=== PATIENT | female | born 1935 | race Caucasian/White ===

== ENCOUNTER 2019-11-28 08:49 | Outpatient (REF) | payer MEDICARE, SELFPAY | END 2019-11-28 08:50 | disposition home or self-care (01) | LOC: HO.MDS 08:49 | PROVIDERS: PCP Internal Medicine; Visit Provider Hospitalist | DX: D80.1 Nonfamilial hypogammaglobulinemia (principal) | CPT/HCPCS: 96365; 96366 ==

== ENCOUNTER 2019-12-26 08:51 | Outpatient (REF) | payer MEDICARE, SELFPAY | END 2019-12-26 08:52 | disposition home or self-care (01) | LOC: HO.MDS 08:51 | PROVIDERS: PCP Internal Medicine; Visit Provider Hospitalist | DX: D80.1 Nonfamilial hypogammaglobulinemia (principal) | CPT/HCPCS: 96365; 96366; J1572 ==

== ENCOUNTER 2020-01-23 08:59 | Outpatient (REF) | payer MEDICARE, SELFPAY | END 2020-01-23 09:00 | disposition home or self-care (01) | LOC: HO.MDS 08:59 | PROVIDERS: PCP Internal Medicine; Visit Provider Hospitalist | DX: D80.1 Nonfamilial hypogammaglobulinemia (principal) | CPT/HCPCS: 96365; 96366; J1572 ==

== ENCOUNTER 2020-02-23 08:53 | Outpatient (REF) | payer MEDICARE, SELFPAY | END 2020-02-23 08:54 | disposition home or self-care (01) | LOC: HO.MDS 08:53 | PROVIDERS: PCP Internal Medicine; Visit Provider Hospitalist | DX: D80.1 Nonfamilial hypogammaglobulinemia (principal) | CPT/HCPCS: 96365; 96366; J1572 ==

== ENCOUNTER → 2020-03-22 09:21 | Outpatient (BNVA) | payer MEDICARE, SELFPAY | PROVIDERS: Visit Provider Hospitalist | DX: D80.1 Nonfamilial hypogammaglobulinemia (principal); J41.8 Mixed simple and mucopurulent chronic bronchitis; J96.11 Chronic respiratory failure with hypoxia | CPT/HCPCS: 99212 ==

== ENCOUNTER 2020-03-24 | Outpatient (REF) | payer MEDICARE, SELFPAY | END 2020-03-24 00:01 | disposition home or self-care (01) | LOC: HO.VC | PROVIDERS: Visit Provider Internal Medicine | DX: Z23 Encounter for immunization (principal) | CPT/HCPCS: 0011A ==

== ENCOUNTER 2020-03-26 08:12 | Outpatient (REF) | payer MEDICARE, SELFPAY ==
--- NOTE | 2020-03-26 08:49 | ECG_ITS ---
Test Reason : HYPOGAMMA GLOBULINEM Blood Pressure : / mmHG Vent. Rate : 062 BPM Atrial Rate : 062 BPM P-R Int : 236 ms QRS Dur : 086 ms QT Int : 392 ms P-R-T Axes : 081 077 066 degrees QTc Int : 397 ms Sinus rhythm with 1st degree A-V block Cannot exclude old Septal infarct , age undetermined Abnormal ECG No previous ECGs available Referred By: Luke Green Electronically Signed By:MARIO RESTREPO
[2020-03-26 09:10] LABS: MANUAL DIFF FLAG SCAN; Mean Corpuscular Volume 94.3 fL (80-98); PLT CLUMP 1; Red Cell Distribution Width 14.1 % (11.0-16.0); SCAN SMEAR FLAG 1
[2020-03-26 09:12] LABS: Basophils Absolute Auto 0.1 X10*3/uL (0.0-0.2); Eosinophils Absolute Auto 0.1 X10*3/uL (0.0-0.4); Eosinophils Percent Auto 1.9 % (0-4); Hematocrit 36.4 % (37-47); Hemoglobin 12.2 g/dl (12.0-16.0); Imm Gran Abs Auto 0.03 X10*3/uL (0.00-0.03); Imm Gran Pct Auto 0.4 % (0.0-0.4); Lymphocytes Absolute Auto 1.1 X10*3/uL (1.2-4.9); Lymphocytes Percent Auto 15.3 % (20-40); Mean Corpuscular HGB Conc 33.5 g/dl (31.0-35.0); Mean Corpuscular Hemoglobin 31.6 pg (27.0-33.0); Mean Platelet Volume 10.3 fL (9.4-12.3); Monocytes Absolute Auto 0.6 X10*3/uL (0.1-1.2); Monocytes Percent Auto 8.7 % (2-11); Neutrophils Absolute Auto 5.3 X10*3/uL (2.0-8.3); Neutrophils Percent Auto 72.7 % (45-73); Platelet Count 124 X10*3/uL (160-400); Red Blood Count 3.86 X10*6/uL (4.20-5.50); White Blood Count 7.3 X10*3/uL (4.8-10.8)
[2020-03-26 09:23] LABS: Anion Gap 10 (12-20); Blood Urea Nitrogen 11 mg/dL (9-16); Calcium 8.7 mg/dL (8.4-10.2); Carbon Dioxide 31 mmol/L (22-29); Chloride 100 mmol/L (96-108); Estimated Glomerular Filt Rate > 60; Glucose Random 85 mg/dL (60-115); Potassium 3.5 mmol/L (3.3-5.1); Sodium 137 mmol/L (135-145)
[2020-03-26 10:23] LABS: Erythrocyte Sedimentation Rate 7 MM/HR (0-20)
[2020-03-29 22:57] LABS: Immunoglobulin G Subclass 1 561 mg/dL (382-929); Immunoglobulin G Subclass 2 298 mg/dL (241-700); Immunoglobulin G Subclass 3 47 mg/dL (22-178); Immunoglobulin G Subclass 4 15.6 mg/dL (4-86); Immunoglobulin G Total 1007 mg/dL (600-1540)
== END 2020-03-26 08:13 | disposition home or self-care (01) ==
LOC: HO.MDS 08:12
PROVIDERS: PCP Internal Medicine; Visit Provider Hospitalist
DX: D80.1 Nonfamilial hypogammaglobulinemia (principal)
CPT/HCPCS: 36415; 80048; 82784; 85025; 85652; 93005; 96365; 96366; J1572

== ENCOUNTER 2020-04-20 | Outpatient (REF) | payer MEDICARE, SELFPAY | END 2020-04-20 00:01 | disposition home or self-care (01) | LOC: HO.VC | PROVIDERS: Visit Provider Internal Medicine | DX: Z23 Encounter for immunization (principal) | CPT/HCPCS: 0012A ==

== ENCOUNTER 2020-04-23 08:46 | Outpatient (REF) | payer MEDICARE, SELFPAY | END 2020-04-23 08:47 | disposition home or self-care (01) | LOC: HO.MDS 08:46 | PROVIDERS: PCP Internal Medicine; Visit Provider Hospitalist | DX: D80.1 Nonfamilial hypogammaglobulinemia (principal) | CPT/HCPCS: 96365; 96366; J1572 ==

== ENCOUNTER 2020-05-21 08:55 | Outpatient (REF) | payer MEDICARE, SELFPAY | END 2020-05-21 08:56 | disposition home or self-care (01) | LOC: HO.MDS 08:55 | PROVIDERS: PCP Internal Medicine; Visit Provider Hospitalist | DX: D80.1 Nonfamilial hypogammaglobulinemia (principal) | CPT/HCPCS: 96365; J1572 ==

== ENCOUNTER 2020-06-18 08:54 | Outpatient (REF) | payer MEDICARE, SELFPAY | END 2020-06-18 08:55 | disposition home or self-care (01) | LOC: HO.MDS 08:54 | PROVIDERS: PCP Internal Medicine; Visit Provider Hospitalist | DX: D80.1 Nonfamilial hypogammaglobulinemia (principal) | CPT/HCPCS: 96365; 96366; J1572 ==

== ENCOUNTER 2020-07-16 08:53 | Outpatient (REF) | payer MEDICARE, SELFPAY | END 2020-07-16 08:54 | disposition home or self-care (01) | LOC: HO.MDS 08:53 | PROVIDERS: PCP Internal Medicine; Visit Provider Hospitalist | DX: D80.1 Nonfamilial hypogammaglobulinemia (principal) | CPT/HCPCS: 96365; 96366; J1569 ==

== ENCOUNTER → 2020-07-27 08:54 | Outpatient (BNVA) | payer MEDICARE, SELFPAY | PROVIDERS: PCP Internal Medicine; Visit Provider Hospitalist | DX: D80.1 Nonfamilial hypogammaglobulinemia (principal); J96.11 Chronic respiratory failure with hypoxia; J41.8 Mixed simple and mucopurulent chronic bronchitis | CPT/HCPCS: 99212 ==

== ENCOUNTER 2020-08-05 10:39 | Outpatient (REF) | payer MEDICARE, SELFPAY ==
[2020-08-05 11:18] LABS: ABG Refer to POC result
[2020-08-05 11:20] LABS: ABG HCO3 28 mmol/L (22-26); ABG pCO2 37 mmHg (32-45); ABG pO2 88 mmHg (83-108)
[2020-08-05 11:21] LABS: ABG pH 7.48 (7.35-7.45)
== END 2020-08-05 10:40 | disposition home or self-care (01) ==
LOC: HO.LAB 10:39
PROVIDERS: PCP Internal Medicine; Visit Provider Hospitalist
DX: Z13.89 Encounter for screening for other disorder (principal)

== ENCOUNTER 2020-08-13 08:48 | Outpatient (REF) | payer MEDICARE, SELFPAY | END 2020-08-13 08:49 | disposition home or self-care (01) | LOC: HO.MDS 08:48 | PROVIDERS: PCP Internal Medicine; Visit Provider Hospitalist | DX: D80.1 Nonfamilial hypogammaglobulinemia (principal) | CPT/HCPCS: 96365; 96366; J1569 ==

== ENCOUNTER 2020-09-10 09:57 | Outpatient (REF) | payer MEDICARE, SELFPAY | END 2020-09-10 09:58 | disposition home or self-care (01) | LOC: HO.MDS 09:57 | PROVIDERS: PCP Internal Medicine; Visit Provider Hospitalist | DX: D80.1 Nonfamilial hypogammaglobulinemia (principal) | CPT/HCPCS: 96365; 96366; J1569 ==

== ENCOUNTER 2020-10-08 08:48 | Outpatient (REF) | payer MEDICARE, SELFPAY | END 2020-10-08 08:49 | disposition home or self-care (01) | LOC: HO.MDS 08:48 | PROVIDERS: PCP Internal Medicine; Visit Provider Hospitalist | DX: D80.1 Nonfamilial hypogammaglobulinemia (principal) | CPT/HCPCS: 96365; 96366; J1572 ==

== ENCOUNTER → 2020-11-03 08:52 | Outpatient (BNVA) | payer MEDICARE, SELFPAY | PROVIDERS: PCP Internal Medicine; Visit Provider Hospitalist | DX: J96.11 Chronic respiratory failure with hypoxia (principal); J41.8 Mixed simple and mucopurulent chronic bronchitis; D80.1 Nonfamilial hypogammaglobulinemia | CPT/HCPCS: 99212 ==

== ENCOUNTER 2020-11-05 08:51 | Outpatient (REF) | payer MEDICARE, SELFPAY ==
--- NOTE | ~2020-11-05 | XR_ITS ---
EXAMINATION: XR CHEST CLINICAL INFORMATION: Chronic respiratory failure. COMPARISON: Previous chest x-rays, most recent April 2019 TECHNIQUE: 2 views of the chest were obtained. FINDINGS: The cardiac silhouette does not appear enlarged. The thoracic aorta is tortuous and calcified. Hilar and mediastinal contours are otherwise unremarkable. The lungs appear well inflated. There are increased markings at the left lung base questionable for bronchial wall thickening or small infiltrate. There is no pleural effusion or pneumothorax. There are degenerative changes of the spine. XR/XR chest 2V IMPRESSION: Well-inflated lungs suggestive of COPD. Question bronchial wall thickening or small infiltrate at the left lung base.
[2020-11-05 09:51] LABS: Basophils Absolute Auto 0.1 X10*3/uL (0.0-0.2); Basophils Percent Auto 1.1 % (0-2); Eosinophils Absolute Auto 0.1 X10*3/uL (0.0-0.4); Imm Gran Abs Auto 0.02 X10*3/uL (0.00-0.03); Imm Gran Pct Auto 0.4 % (0.0-0.4); MANUAL DIFF FLAG SCAN; PLT CLUMP 1; Red Cell Distribution Width 14.2 % (11.0-16.0); SCAN SMEAR FLAG 1
[2020-11-05 09:53] LABS: Eosinophils Percent Auto 2.6 % (0-4); Hemoglobin 12.5 g/dl (12.0-16.0); Lymphocytes Absolute Auto 0.5 X10*3/uL (1.2-4.9); Lymphocytes Percent Auto 9.9 % (20-40); Mean Corpuscular HGB Conc 33.8 g/dl (31.0-35.0); Mean Corpuscular Hemoglobin 31.7 pg (27.0-33.0); Mean Corpuscular Volume 93.9 fL (80-98); Mean Platelet Volume 9.6 fL (9.4-12.3); Monocytes Absolute Auto 0.6 X10*3/uL (0.1-1.2); Monocytes Percent Auto 11.4 % (2-11); Neutrophils Absolute Auto 4.1 X10*3/uL (2.0-8.3); Neutrophils Percent Auto 74.6 % (45-73); Platelet Count 126 X10*3/uL (160-400); Red Blood Count 3.94 X10*6/uL (4.20-5.50); White Blood Count 5.5 X10*3/uL (4.8-10.8)
[2020-11-05 11:03] LABS: Erythrocyte Sedimentation Rate 17 MM/HR (0-20)
[2020-11-10 20:02] LABS: Immunoglobulin G Subclass 1 586 mg/dL (382-929); Immunoglobulin G Subclass 2 324 mg/dL (241-700); Immunoglobulin G Subclass 3 47 mg/dL (22-178); Immunoglobulin G Subclass 4 20.8 mg/dL (4-86); Immunoglobulin G Total 1096 mg/dL (600-1540)
== END 2020-11-05 08:52 | disposition home or self-care (01) ==
LOC: HO.MDS 08:51
PROVIDERS: PCP Internal Medicine; Visit Provider Hospitalist
DX: D80.1 Nonfamilial hypogammaglobulinemia (principal); J44.9 Chronic obstructive pulmonary disease, unspecified; J96.10 Chronic respiratory failure, unspecified whether with hypoxia or hypercapnia
CPT/HCPCS: 36415; 71046; 82784; 85025; 85652; 96365; 96366; J1569

== ENCOUNTER 2020-12-17 08:57 | Outpatient (REF) | payer MEDICARE, SELFPAY | END 2020-12-17 08:58 | disposition home or self-care (01) | LOC: HO.MDS 08:57 | PROVIDERS: PCP Internal Medicine; Visit Provider Hospitalist | DX: D80.1 Nonfamilial hypogammaglobulinemia (principal) | CPT/HCPCS: 96365; 96366; J1569 ==

== ENCOUNTER 2021-01-28 08:52 | Outpatient (REF) | payer MEDICARE, SELFPAY | END 2021-01-28 08:53 | disposition home or self-care (01) | LOC: HO.MDS 08:52 | PROVIDERS: Visit Provider Hospitalist | DX: D80.1 Nonfamilial hypogammaglobulinemia (principal) | CPT/HCPCS: 96365; 96366; J1569 ==

== ENCOUNTER 2021-03-11 09:22 | Outpatient (REF) | payer MEDICARE, SELFPAY | END 2021-03-11 09:23 | disposition home or self-care (01) | LOC: HO.MDS 09:22 | PROVIDERS: Visit Provider Hospitalist | DX: D80.1 Nonfamilial hypogammaglobulinemia (principal) | CPT/HCPCS: 96365; 96366; J1569 ==

== ENCOUNTER → 2021-04-08 09:10 | Outpatient (BNVA) | payer MEDICARE, SELFPAY | PROVIDERS: PCP Internal Medicine; Visit Provider Hospitalist | DX: J96.11 Chronic respiratory failure with hypoxia (principal); J41.8 Mixed simple and mucopurulent chronic bronchitis; D80.1 Nonfamilial hypogammaglobulinemia | CPT/HCPCS: 99212 ==

== ENCOUNTER 2021-04-22 08:48 | Outpatient (REF) | payer MEDICARE, SELFPAY | END 2021-04-22 08:49 | disposition home or self-care (01) | LOC: HO.MDS 08:48 | PROVIDERS: Visit Provider Hospitalist | DX: D80.1 Nonfamilial hypogammaglobulinemia (principal) | CPT/HCPCS: 96365; 96366; J1569 ==

== ENCOUNTER 2021-06-10 09:20 | Outpatient (REF) | payer MEDICARE, SELFPAY | END 2021-06-10 09:21 | disposition home or self-care (01) | LOC: HO.MDS 09:20 | PROVIDERS: Visit Provider Hospitalist | DX: D80.1 Nonfamilial hypogammaglobulinemia (principal) | CPT/HCPCS: 96365; 96366; J1569 ==

== ENCOUNTER → 2021-07-05 10:03 | Outpatient (BNVA) | payer MEDICARE, SELFPAY | PROVIDERS: PCP Internal Medicine; Visit Provider Hospitalist | DX: J96.11 Chronic respiratory failure with hypoxia (principal); J41.8 Mixed simple and mucopurulent chronic bronchitis; I26.93 Single subsegmental thrombotic pulmonary embolism without acute cor pulmonale; D80.1 Nonfamilial hypogammaglobulinemia | CPT/HCPCS: 99212 ==

== ENCOUNTER 2021-07-22 09:25 | Outpatient (REF) | payer MEDICARE, SELFPAY | END 2021-07-22 09:26 | disposition home or self-care (01) | LOC: HO.MDS 09:25 | PROVIDERS: Visit Provider Hospitalist | DX: D80.1 Nonfamilial hypogammaglobulinemia (principal) | CPT/HCPCS: 96365; 96366; J1569 ==

== ENCOUNTER → 2021-08-11 09:38 | Outpatient (REF) | payer MEDICARE, SELFPAY ==
--- NOTE | ~2021-08-11 | XR_ITS ---
EXAMINATION: XR CHEST CLINICAL INFORMATION: PE without acute cor pulmonale. COMPARISON: None. TECHNIQUE: 2 views of the chest were obtained. FINDINGS: The lungs are hyperinflated with patchy opacities seen in left lung base, likely atelectasis or scarring. The rest of the lungs are clear. The heart size and pulmonary vascularity is normal. There is mild dextroscoliosis and mild spondylosis. XR/XR chest 2V IMPRESSION: Hyperinflated lungs with the atelectatic changes of the left lung base.
--- NOTE | ~2021-08-11 | NM_ITS ---
EXAMINATION: ME LUNG IMAGE PERFUSION CLINICAL INFORMATION: Single segmental PE seen on 07/10/2021. COMPARISON: None TECHNIQUE: Following intravenous administration of 4 mCi of technetium-99m MAA, imaging of both lungs were obtained in multiple projections. Ventilation study was not performed. FINDINGS: On perfusion scan, there are small subsegmental defects seen in the lateral basal segments of both lower lobe. This could be secondary to pleural thickening or loculated effusion. Otherwise, there is normal perfusion seen to the rest of the segments. Chest x-ray obtained today reveals mild tenting of bilateral hemidiaphragms with patchy opacity in the left lung base, question scarring or atelectasis. ME/ME pul perfusion IMPRESSION: Subsegmental defects in the lateral basal segment of both lower lobes likely low probability. On x-ray, some of these subsegmental defects may represent thickening of major fissure or fluid within the major fissure.
== END ==
LOC: HO.NUCMED 09:38
PROVIDERS: PCP Internal Medicine; Visit Provider Hospitalist
DX: J96.10 Chronic respiratory failure, unspecified whether with hypoxia or hypercapnia (principal); I26.93 Single subsegmental thrombotic pulmonary embolism without acute cor pulmonale
CPT/HCPCS: 71046; 78580; A9540

== ENCOUNTER 2021-09-02 09:17 | Outpatient (REF) | payer MEDICARE, SELFPAY | END 2021-09-02 09:18 | disposition home or self-care (01) | LOC: HO.MDS 09:17 | PROVIDERS: PCP Internal Medicine; Visit Provider Hospitalist | DX: D80.1 Nonfamilial hypogammaglobulinemia (principal) | CPT/HCPCS: 96365; 96366; J1569 ==

== ENCOUNTER 2021-10-11 09:49 | Outpatient (REF) | payer MEDICARE, SELFPAY ==
[2021-10-11 10:30] LABS: MANUAL DIFF FLAG NO
[2021-10-11 10:57] LABS: Basophils Absolute Auto 0.1 X10*3/uL (0.0-0.2); Basophils Percent Auto 1.3 % (0-2); Eosinophils Absolute Auto 0.1 X10*3/uL (0.0-0.4); Eosinophils Percent Auto 0.9 % (0-4); Hemoglobin 12.4 g/dl (12.0-16.0); Imm Gran Abs Auto 0.03 X10*3/uL (0.00-0.03); Imm Gran Pct Auto 0.3 % (0.0-0.4); Lymphocytes Absolute Auto 0.8 X10*3/uL (1.2-4.9); Lymphocytes Percent Auto 7.3 % (20-40); Mean Corpuscular HGB Conc 32.6 g/dl (31.0-35.0); Mean Corpuscular Hemoglobin 30.8 pg (27.0-33.0); Mean Corpuscular Volume 94.3 fL (80.0-98.0); Mean Platelet Volume 9.8 fL (9.4-12.3); Monocytes Absolute Auto 0.7 X10*3/uL (0.1-1.2); Monocytes Percent Auto 6.7 % (2-11); Neutrophils Absolute Auto 8.5 x10*3/uL (2.0-8.3); Neutrophils Percent Auto 83.5 % (45-73); Platelet Count 144 X10*3/uL (160-400); Red Blood Count 4.03 X10*6/uL (4.20-5.50); Red Cell Distribution Width 14.6 % (11.0-16.0); White Blood Count 10.2 X10*3/uL (4.8-10.8)
[2021-10-11 11:27] LABS: Anion Gap 13 (12-20); Blood Urea Nitrogen 16 mg/dL (9-16); Calcium 8.8 mg/dL (8.4-10.2); Carbon Dioxide 32 mmol/L (22-29); Chloride 96 mmol/L (96-108); Estimated Glomerular Filt Rate > 60; Glucose Random 79 mg/dL (60-115); Sodium 137 mmol/L (135-145)
[2021-10-11 11:46] LABS: Erythrocyte Sedimentation Rate 8 MM/HR (0-20)
[2021-10-13 15:11] LABS: Immunoglobulin G Subclass 1 534 mg/dL (382-929); Immunoglobulin G Subclass 2 273 mg/dL (241-700); Immunoglobulin G Subclass 3 45 mg/dL (22-178); Immunoglobulin G Subclass 4 42.5 mg/dL (4-86); Immunoglobulin G Total 911 mg/dL (600-1540)
== END 2021-10-11 09:50 | disposition home or self-care (01) ==
LOC: HO.LAB 09:49
PROVIDERS: PCP Internal Medicine; Visit Provider Hospitalist
DX: D80.1 Nonfamilial hypogammaglobulinemia (principal); J41.8 Mixed simple and mucopurulent chronic bronchitis; J96.11 Chronic respiratory failure with hypoxia; K11.9 Disease of salivary gland, unspecified
CPT/HCPCS: 36415; 80048; 82784; 85025; 85652; 99212

== ENCOUNTER 2021-10-14 09:06 | Outpatient (REF) | payer MEDICARE, SELFPAY | END 2021-10-14 09:07 | disposition home or self-care (01) | LOC: HO.MDS 09:06 | PROVIDERS: Visit Provider Hospitalist | DX: D80.1 Nonfamilial hypogammaglobulinemia (principal) | CPT/HCPCS: 96365; 96366; J1569 ==

== ENCOUNTER 2021-12-09 08:55 | Outpatient (REF) | payer MEDICARE, SELFPAY | END 2021-12-09 08:56 | disposition home or self-care (01) | LOC: HO.MDS 08:55 | PROVIDERS: Visit Provider Hospitalist | DX: D80.1 Nonfamilial hypogammaglobulinemia (principal) | CPT/HCPCS: 96365; 96366; J1569 ==

== ENCOUNTER 2022-02-03 09:02 | Outpatient (REF) | payer MEDICARE, SELFPAY | END 2022-02-03 09:03 | disposition home or self-care (01) | LOC: HO.MDS 09:02 | PROVIDERS: Visit Provider Hospitalist | DX: D80.1 Nonfamilial hypogammaglobulinemia (principal) | CPT/HCPCS: 96365; 96366; J1569 ==

== ENCOUNTER → 2022-02-06 10:13 | Outpatient (BNVA) | payer MEDICARE, SELFPAY | PROVIDERS: PCP Internal Medicine; Visit Provider Hospitalist | DX: D80.1 Nonfamilial hypogammaglobulinemia (principal); J41.8 Mixed simple and mucopurulent chronic bronchitis; J96.11 Chronic respiratory failure with hypoxia; K11.9 Disease of salivary gland, unspecified; U09.9 Post COVID-19 condition, unspecified; R53.81 Other malaise | CPT/HCPCS: 99212 ==

== ENCOUNTER 2022-04-07 08:54 | Outpatient (REF) | payer MEDICARE, SELFPAY | END 2022-04-07 08:55 | disposition home or self-care (01) | LOC: HO.MDS 08:54 | PROVIDERS: Visit Provider Hospitalist | DX: D80.1 Nonfamilial hypogammaglobulinemia (principal) | CPT/HCPCS: 96365; 96366; J1569 ==

== ENCOUNTER 2022-05-16 10:05 | Outpatient (REF) | payer MEDICARE, SELFPAY ==
[2022-05-16 11:16] LABS: MANUAL DIFF FLAG NO
[2022-05-16 11:20] LABS: Basophils Absolute Auto 0.1 X10*3/uL (0.0-0.2); Basophils Percent Auto 0.5 % (0-2); Eosinophils Percent Auto 0.4 % (0-4); Hematocrit 30.7 % (37.0-47.0); Imm Gran Abs Auto 0.06 X10*3/uL (0.00-0.03); Imm Gran Pct Auto 0.6 % (0.0-0.4); Lymphocytes Absolute Auto 1.8 X10*3/uL (1.2-4.9); Lymphocytes Percent Auto 17.1 % (20-40); Mean Corpuscular HGB Conc 32.6 g/dl (31.0-35.0); Mean Corpuscular Hemoglobin 30.1 pg (27.0-33.0); Mean Corpuscular Volume 92.5 fL (80.0-98.0); Mean Platelet Volume 8.9 fL (9.4-12.3); Monocytes Absolute Auto 0.8 X10*3/uL (0.1-1.2); Monocytes Percent Auto 7.9 % (2-11); Neutrophils Absolute Auto 7.6 x10*3/uL (2.0-8.3); Neutrophils Percent Auto 73.5 % (45-73); Platelet Count 197 X10*3/uL (160-400); Red Blood Count 3.32 X10*6/uL (4.20-5.50); Red Cell Distribution Width 16.6 % (11.0-16.0); White Blood Count 10.3 X10*3/uL (4.8-10.8)
[2022-05-16 11:24] LABS: Venous Blood Gas Refer to POC result
[2022-05-16 11:30] LABS: VBG Base Excess 13.9 mmol/L; VBG pCO2 51 mmHg; VBG pH 7.48 (7.32-7.43); VBG pO2 38 mmHg
[2022-05-16 11:31] LABS: VBG HCO3 39 mmol/L (22-26)
[2022-05-16 12:09] LABS: Erythrocyte Sedimentation Rate 14 MM/HR (0-20)
[2022-05-16 12:23] LABS: Anion Gap 10 (12-20); Blood Urea Nitrogen 11 mg/dL (9-16); Calcium 8.5 mg/dL (8.4-10.2); Carbon Dioxide 36 mmol/L (22-29); Chloride 94 mmol/L (96-108); Estimated Glomerular Filt Rate > 60; Glucose Random 83 mg/dL (60-115); Potassium 3.6 mmol/L (3.3-5.1); Sodium 136 mmol/L (135-145)
[2022-05-18 13:53] LABS: Myeloperoxidase Antibody <1.0 AI; Proteinase 3 PR3 Antibodies <1.0 AI
[2022-05-18 20:13] LABS: Immunoglobulin E 13 kU/L (<OR=114)
[2022-05-19 14:54] LABS: IgA 152 mg/dL (70-320); IgG 744 mg/dL (600-1540); IgM 61 mg/dL (50-300)
[2022-05-25 00:14] LABS: Asperg fumigatus Precip Abs NEGATIVE (NEGATIVE); Micropoly faeni Abs NEGATIVE (NEGATIVE); Pigeon serum Abs NEGATIVE (NEGATIVE); Saccharo pora viridis Abs NEGATIVE (NEGATIVE); Thermo candidus Abs NEGATIVE (NEGATIVE); Thermoa vulgaris #1 NEGATIVE (NEGATIVE)
== END 2022-05-16 10:06 | disposition home or self-care (01) ==
LOC: HO.LAB 10:05
PROVIDERS: PCP Internal Medicine; Visit Provider Hospitalist
DX: J41.8 Mixed simple and mucopurulent chronic bronchitis (principal); J96.11 Chronic respiratory failure with hypoxia; D80.1 Nonfamilial hypogammaglobulinemia; J18.9 Pneumonia, unspecified organism; R91.8 Other nonspecific abnormal finding of lung field; R53.81 Other malaise; Z99.81 Dependence on supplemental oxygen
CPT/HCPCS: 36415; 80048; 82784; 82785; 82803; 85025; 85652; 86021; 86331; 86606; 86609; 99212

== ENCOUNTER 2022-06-02 09:02 | Outpatient (REF) | payer MEDICARE, SELFPAY | END 2022-06-02 09:03 | disposition home or self-care (01) | LOC: HO.MDS 09:02 | PROVIDERS: PCP Internal Medicine; Visit Provider Hospitalist | DX: D80.1 Nonfamilial hypogammaglobulinemia (principal) | CPT/HCPCS: 96365; 96366; J1569 ==

== ENCOUNTER → 2022-06-15 09:48 | Outpatient (BNVA) | payer MEDICARE, SELFPAY | PROVIDERS: PCP Internal Medicine; Visit Provider Hospitalist | DX: J41.8 Mixed simple and mucopurulent chronic bronchitis (principal); J18.9 Pneumonia, unspecified organism; J96.11 Chronic respiratory failure with hypoxia; D80.1 Nonfamilial hypogammaglobulinemia; R53.81 Other malaise | CPT/HCPCS: 99212 ==

== ENCOUNTER 2022-07-14 08:56 | Outpatient (REF) | payer MEDICARE, SELFPAY | END 2022-07-14 08:57 | disposition home or self-care (01) | LOC: HO.MDS 08:56 | PROVIDERS: Visit Provider Hospitalist | DX: D80.1 Nonfamilial hypogammaglobulinemia (principal) | CPT/HCPCS: 96365; 96366; J1569 ==

== ENCOUNTER → 2022-08-16 09:20 | Outpatient (BNVA) | payer MEDICARE, SELFPAY | PROVIDERS: PCP Internal Medicine; Visit Provider Hospitalist | DX: J41.8 Mixed simple and mucopurulent chronic bronchitis (principal); J96.11 Chronic respiratory failure with hypoxia; J18.9 Pneumonia, unspecified organism; D80.1 Nonfamilial hypogammaglobulinemia; R53.81 Other malaise; Z79.899 Other long term (current) drug therapy | CPT/HCPCS: 99212 ==

== ENCOUNTER 2022-08-25 08:54 | Outpatient (REF) | payer MEDICARE, SELFPAY ==
--- NOTE | ~2022-08-25 | XR_ITS ---
EXAMINATION: XR CHEST CLINICAL INFORMATION: Reason for Exam J18.9 - Pneumonia, unspecified organism COMPARISON: Chest radiograph 08/11/2021 TECHNIQUE: 2 views of the chest FINDINGS: Lines and tubes: None. Emphysema. New small bilateral pleural effusions, with bibasilar opacities possibly reflective of atelectasis in the setting of effusions with superimposed infection or aspiration difficult to exclude. Background of increased interstitial opacities Tin B lines suggesting pulmonary edema. No pneumothorax. Normal cardiomediastinal silhouette. XR/XR chest 2V IMPRESSION: 1. New small bilateral pleural effusions, with bibasilar opacities possibly reflective of atelectasis in the setting of effusions with superimposed infection or aspiration difficult to exclude. 2. Background of increased interstitial opacities Tin B lines suggesting pulmonary edema. 3. Emphysema.
== END 2022-08-25 08:55 | disposition home or self-care (01) ==
LOC: HO.MDS 08:54
PROVIDERS: Visit Provider Hospitalist
DX: D80.1 Nonfamilial hypogammaglobulinemia (principal); J18.9 Pneumonia, unspecified organism
CPT/HCPCS: 71046; 96365; 96366; J1569

== ENCOUNTER 2022-10-06 08:49 | Outpatient (REF) | payer MEDICARE, SELFPAY | END 2022-10-06 08:50 | disposition home or self-care (01) | LOC: HO.MDS 08:49 | PROVIDERS: Visit Provider Hospitalist | DX: D80.1 Nonfamilial hypogammaglobulinemia (principal) | CPT/HCPCS: 96365; 96366; J1569 ==

== ENCOUNTER 2022-11-07 10:24 | Outpatient (AMB) | payer MEDICARE, SELFPAY ==
--- NOTE | 2022-11-07 10:38 | A.OFFVIS_ITS ---
Intake Vital Signs 11/07/22 10:40 Height 5 ft 2 in Weight 100 lb BMI 18.3 BP 126/60 Blood Pressure Location Lt brachial Position Sitting Pulse 55 Pulse Source Pulse Oximeter Pulse Oximetry (%) 96 Oxygen Delivery Method Room Air Comment 2 Liters Oxygen([employer]) Intake Visit Reasons: Follow up PE Allergies bee venom protein (honey bee) [BEE VENOM PROTEIN (HONEY BEE)] Allergy (Severe, Verified 11/07/22 10:43) swelling rash Penicillins [PENICILLINS] Allergy (Severe, Verified 11/07/22 10:43) rash sulfamethoxazole [From BACTRIM] Allergy (Severe, Verified 11/07/22 10:43) rash trimethoprim [From BACTRIM] Allergy (Severe, Verified 11/07/22 10:43) rash risedronate sodium Allergy (Intermediate, Verified 11/07/22 10:43) Rash hydroxychloroquine Allergy (Mild, Verified 11/07/22 10:43) Rash HPI HPI Comments History of Present Illness Details The patient is an 87 y/o woman with a history of COPD in addition to chronic respiratory failure on oxygen related to the COPD in addition to hypogammaglobulinemia IgG infusions every month. The IgG infusions with very effective beneficial to her. She has been able to stay healthy and recovering from her ongoing respiratory infections that she had before. She also uses azithromycin Sunday and Sunday with decrease exacerbations of her COPD and bronchitis. She however has complaints of weight loss of approximately 50 lb in also feeling very cold. Platelet she does have a coughing episodes with productive sputum with yellowish sputum. Denies any blood or any point. She denies any night sweats she denies any chills or fevers. Overall she is doing well. She did not have her bloodwork. She is concerned about the next IgG infusion. She has been weak with lower extremity muscle loss and weight loss. We did do a chest x-ray that was relatively stable. No evidence of any malignancy. The x-rays for the weight loss is still not clear. She does feel very cold. And has had issues with thyroid. She will be following up with her primary care doctor soon. If it's still not clear about her weight loss then a a CT scan of the chest may be warranted to address questions of malignancy. 05/16/2022 the patient is here for a hospital follow-up visit. She was recently hospitalized with pneumonia and COPD exacerbation. The patient had a CT scan of the chest that we personally reviewed the report demonstrating bibasilar airspace disease. She has been treated with multiple courses of steroids therefore suppressing her immune system and she was also given multiple courses of antibiotics. Her sputum culture was only positive for Aspergillus fumigatus. The patient is also post COVID back in the end of January. It is understood that the increase of fungal infections is higher after a COVID infection. 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 Therefore is not unreasonable to treat her for the fungal infection specially with worsening overall status her significant weight loss. The other option is to consider bronchoscopy but she appears to be frail and I am concerned about any aggressive interventions. The patient also may be having allergic reaction to the Aspergillus will go ahead and request Aspergillus precipitants in addition to allergy levels. 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 06/15/2022 the patient is here for a pulmonary follow-up visit. She is currently on voriconazole. She stop the azithromycin. She seems to be doing well. Her chest congestion is improved. She is tolerating the antifungal therapy. Her blood work was reassuring with normal renal functions and CBC. The patient does have an IgG level that is low normal. She is responding well to the IVIG infusions every 6 weeks. It was reported that she has been having hard time getting her IVIG due to axis. Question about a Port-A-Cath. At this point will hold off on any invasive procedures for specially with her frail state. She is trying to gain weight. She is going to start taking additional protein in her diet. She also drinks post. She does continue to use the oxygen with good effect and she continues with respiratory therapy. At this point she is doing okay although she is frail. 08/16/2022 The patient is here for a pulmonary follow up visit. She comepleted the voriconazole. She is feeling better. Still complains of the weakeness and shortness of breath, moderate in severity. Still, has chest congestion, but clear mucus. But overall, doing better. Continue with IVIg every 6 weeks. We reviewed her last CT chest 04/2022 with bibasilar PNA and pleural effusions. Will undergo a repeat CXR. 11/07/2022 the patient is here for pulmonary follow-up visit. She is doing better for respiratory status. She completed her antibiotics and also completed her prednisone. She is also down with all the antifungal therapy. Her last chest x-ray we did review demonstrating the 1st residual pleural effusions and bibasilar congestion and congestive heart failure. Although she is doing better at this point from that standpoint. She continues with respiratory therapy. She continues with her IVIG every 6 weeks. Will continue this for now. We will reassess her IgG levels in the springtime decide if we can go further into every 8 weeks. The patient unfortunately had a bad fall. She is currently being evaluated by primary care doctor and is scheduled to have an MRI of her lumbar hip area. She is having significant pain. I did give her some recommendations. In the meantime she may benefit from VNA services I did ask her to reach out to her primary care doctor as she is she is pretty homebound and she is very unsteady on her feet. Has been has been very concerned about her risk for falls and he has a hard time helping her as well. 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 Pulmonary emboli Chronic respiratory failure COPD (chronic obstructive pulmonary disease) Hypogammaglobulinemia Social History (Updated 04/08/21 @ 09:21 by Katty Barajas [facility]) Patient Tobacco Use Status: Former Tobacco user Tobacco use type: Cigarette Years Smoked: 20 years Review of Systems Const Reports frequent falls, Denies night sweats and Reports weakness ENT Denies change in voice, Denies lip swelling, Denies mouth pain, Reports nasal congestion, Reports nasal discharge and Denies tongue swelling Card Denies chest pain and Reports dyspnea on exertion Resp Reports chest congestion, Reports cough and Reports dyspnea on exertion GI Denies abdominal pain Musc Reports abnormal gait and Reports muscle weakness Neuro Denies Neuro-related abnormal movements, Reports abnormal gait, Reports frequent falls and Reports weakness Psych Denies no additional complaints Andrew/Lymph Denies easy bleeding and Denies lymphadenopathy Aller/Immun Denies lip swelling and Denies tongue swelling Physical Exam Vital Signs: Last Vital Signs Pulse 55 11/07/22 10:40 BP 126/60 11/07/22 10:40 Pulse Ox 96 11/07/22 10:40 Oxygen Delivery Method Room Air 11/07/22 10:40 BMI result Body Mass Index 18.3 Const General: comfortable and alert Nutritional Appearance: underweight Orientation/consciousness: patient oriented x3 Limitations: wheelchair HEENT Head: Yes normocephalic Neck Neck: Yes normal visual inspection, Yes full ROM and Yes no lymphadenopathy Chest Chest palpation & inspection: normal inspection of the chest Resp Auscultation: no rales, no rhonchi, no wheezes and diminished lung sounds Cardio Rate: regular rate Rhythm: regular rhythm Heart sounds: S1 normal heart sound present and S2 normal heart sound present GI Palpation (GI): Soft to palpation and nontender Auscultation: normal bowel sounds Skin General skin exam: rashes and/or lesions noted Neuro General: patient oriented x3 Extrem General: Yes no clubbing, cyanosis or edema Assessment & Plan Assessment & Plan (1) Hypogammaglobulinemia: Code(s): D80.1 - Nonfamilial hypogammaglobulinemia (2) COPD (chronic obstructive pulmonary disease): Code(s): J44.9 - Chronic obstructive pulmonary disease, unspecified Qualifiers: COPD type: chronic bronchitis Chronic bronchitis type: mixed simple and mucopurulent Qualified Code(s): J41.8 - Mixed simple and mucopurulent chronic bronchitis (3) Chronic respiratory failure: Code(s): J96.10 - Chronic respiratory failure, unspecified whether with hypoxia or hypercapnia Qualifiers: Respiratory failure complication: hypoxia Qualified Code(s): J96.11 - Chronic respiratory failure with hypoxia (4) Physical deconditioning: Code(s): R53.81 - Other malaise (5) Pneumonia: Comment: better Code(s): J18.9 - Pneumonia, unspecified organism Qualifiers: Pneumonia type: due to unspecified organism Laterality: unspecified laterality Lung location: unspecified part of lung Qualified Code(s): J18.9 - Pneumonia, unspecified organism Plan continue IgG infusions every 6 weeks continue Trelegy ISRA as needed Nebulizer therapy restart CPT with the acapella valve should repeat CXR prior to the next visit Follow-up in 3-4 months Orders: Orders XR chest 2V Today J18.9 - Pneumonia, unspecified organism Medications: New diclofenac sodium 1% (Voltaren Arthritis Pain) apply to single elbow, wrist or hand; for hand includes palm/fingers/back of hand 2 grams topical QID 100 grams 0RF 30 days Coding Level of Care Code Est Pt Level 4 (63086) Diagnoses Hypogammaglobulinemia D80.1 Mixed simple and mucopurulent chronic bronchitis J41.8 COPD type: chronic bronchitis Chronic bronchitis type: mixed simple and mucopurulent Chronic respiratory failure with hypoxia J96.11 Respiratory failure complication: hypoxia Physical deconditioning R53.81 Pneumonia due to infectious organism, unspecified laterality, unspecified part of lung J18.9 Pneumonia type: due to unspecified organism Laterality: unspecified laterality Lung location: unspecified part of lung Time Spent (min) 18
[2022-11-07 10:40] VITALS: BP 126/60; PULSE 55; O2SAT 96; BMI 18.3
== END 2022-11-07 11:10 | disposition home or self-care (01) ==
PROVIDERS: PCP Internal Medicine; Visit Provider Hospitalist
DX: D80.1 Nonfamilial hypogammaglobulinemia (principal); J41.8 Mixed simple and mucopurulent chronic bronchitis; J96.11 Chronic respiratory failure with hypoxia; R53.81 Other malaise; J18.9 Pneumonia, unspecified organism
CPT/HCPCS: 99214

== ENCOUNTER → 2022-11-07 10:24 | Outpatient (BNVA) | payer MEDICARE, SELFPAY | PROVIDERS: PCP Internal Medicine; Visit Provider Hospitalist | DX: D80.1 Nonfamilial hypogammaglobulinemia (principal); J41.8 Mixed simple and mucopurulent chronic bronchitis; J96.11 Chronic respiratory failure with hypoxia; J18.9 Pneumonia, unspecified organism; R53.81 Other malaise | CPT/HCPCS: 99212 ==

== ENCOUNTER 2022-11-17 09:05 | Outpatient (REF) | payer MEDICARE, SELFPAY | END 2022-11-17 09:06 | disposition home or self-care (01) | LOC: HO.MDS 09:05 | PROVIDERS: Visit Provider Hospitalist | DX: D80.1 Nonfamilial hypogammaglobulinemia (principal) | CPT/HCPCS: 96365; 96366; J1569 ==

== ENCOUNTER 2022-12-29 08:51 | Outpatient (REF) | payer MEDICARE, SELFPAY | END 2022-12-29 08:52 | disposition home or self-care (01) | LOC: HO.MDS 08:51 | PROVIDERS: Visit Provider Hospitalist | DX: D80.1 Nonfamilial hypogammaglobulinemia (principal) | CPT/HCPCS: 90675; 96365; 96366; J1569 ==

== ENCOUNTER 2023-02-09 10:35 | Outpatient (REF) | payer MEDICARE, SELFPAY | END 2023-02-09 10:36 | disposition home or self-care (01) | LOC: HO.MDS 10:35 | PROVIDERS: Visit Provider Hospitalist | DX: D80.1 Nonfamilial hypogammaglobulinemia (principal) | CPT/HCPCS: 96365; 96366; J1569 ==

== ENCOUNTER 2023-02-13 10:53 | Outpatient (AMB) | payer MEDICARE, SELFPAY ==
--- NOTE | 2023-02-13 10:58 | MHC.OFFVIS ---
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 Allergies bee venom protein (honey bee) [BEE VENOM PROTEIN (HONEY BEE)] Allergy (Severe, Verified 02/13/23 11:03) swelling rash Penicillins [PENICILLINS] Allergy (Severe, Verified 02/13/23 11:03) rash sulfamethoxazole [From BACTRIM] Allergy (Severe, Verified 02/13/23 11:03) rash trimethoprim [From BACTRIM] Allergy (Severe, Verified 02/13/23 11:03) rash risedronate sodium Allergy (Intermediate, Verified 02/13/23 11:03) Rash hydroxychloroquine Allergy (Mild, Verified 02/13/23 11:03) Rash HPI HPI Comments History of Present Illness Details The patient is an 87 y/o woman with a history of COPD in addition to chronic respiratory failure on oxygen related to the COPD in addition to hypogammaglobulinemia IgG infusions every month. The IgG infusions with very effective beneficial to her. She has been able to stay healthy and recovering from her ongoing respiratory infections that she had before. She also uses azithromycin Sunday and Sunday with decrease exacerbations of her COPD and bronchitis. She however has complaints of weight loss of approximately 50 lb in also feeling very cold. Platelet she does have a coughing episodes with productive sputum with yellowish sputum. Denies any blood or any point. She denies any night sweats she denies any chills or fevers. Overall she is doing well. She did not have her bloodwork. She is concerned about the next IgG infusion. She has been weak with lower extremity muscle loss and weight loss. We did do a chest x-ray that was relatively stable. No evidence of any malignancy. The x-rays for the weight loss is still not clear. She does feel very cold. And has had issues with thyroid. She will be following up with her primary care doctor soon. If it's still not clear about her weight loss then a a CT scan of the chest may be warranted to address questions of malignancy. 05/16/2022 the patient is here for a hospital follow-up visit. She was recently hospitalized with pneumonia and COPD exacerbation. The patient had a CT scan of the chest that we personally reviewed the report demonstrating bibasilar airspace disease. She has been treated with multiple courses of steroids therefore suppressing her immune system and she was also given multiple courses of antibiotics. Her sputum culture was only positive for Aspergillus fumigatus. The patient is also post COVID back in the end of January. It is understood that the increase of fungal infections is higher after a COVID infection. 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 Therefore is not unreasonable to treat her for the fungal infection specially with worsening overall status her significant weight loss. The other option is to consider bronchoscopy but she appears to be frail and I am concerned about any aggressive interventions. The patient also may be having allergic reaction to the Aspergillus will go ahead and request Aspergillus precipitants in addition to allergy levels. 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 06/15/2022 the patient is here for a pulmonary follow-up visit. She is currently on voriconazole. She stop the azithromycin. She seems to be doing well. Her chest congestion is improved. She is tolerating the antifungal therapy. Her blood work was reassuring with normal renal functions and CBC. The patient does have an IgG level that is low normal. She is responding well to the IVIG infusions every 6 weeks. It was reported that she has been having hard time getting her IVIG due to axis. Question about a Port-A-Cath. At this point will hold off on any invasive procedures for specially with her frail state. She is trying to gain weight. She is going to start taking additional protein in her diet. She also drinks post. She does continue to use the oxygen with good effect and she continues with respiratory therapy. At this point she is doing okay although she is frail. 08/16/2022 The patient is here for a pulmonary follow up visit. She comepleted the voriconazole. She is feeling better. Still complains of the weakeness and shortness of breath, moderate in severity. Still, has chest congestion, but clear mucus. But overall, doing better. Continue with IVIg every 6 weeks. We reviewed her last CT chest 04/2022 with bibasilar PNA and pleural effusions. Will undergo a repeat CXR. 11/07/2022 the patient is here for pulmonary follow-up visit. She is doing better for respiratory status. She completed her antibiotics and also completed her prednisone. She is also down with all the antifungal therapy. Her last chest x-ray we did review demonstrating the 1st residual pleural effusions and bibasilar congestion and congestive heart failure. Although she is doing better at this point from that standpoint. She continues with respiratory therapy. She continues with her IVIG every 6 weeks. Will continue this for now. We will reassess her IgG levels in the springtime decide if we can go further into every 8 weeks. The patient unfortunately had a bad fall. She is currently being evaluated by primary care doctor and is scheduled to have an MRI of her lumbar hip area. She is having significant pain. I did give her some recommendations. In the meantime she may benefit from VNA services I did ask her to reach out to her primary care doctor as she is she is pretty homebound and she is very unsteady on her feet. Has been has been very concerned about her risk for falls and he has a hard time helping her as well. 02/13/2023 the patient is here for a pulmonary follow-up visit. She has been complaining of worsening cough productive in nature with brownish phlegm. This is different from before. She also complains of increasing shortness of breath with minimal activity. She is also has had significant weight loss. She continues on the IVIG. Will recheck her levels. In addition to that the patient will have blood work done to make sure she does not have any other reasons for the worsening dyspnea on exertion. In addition to further address the weight loss. Will have her get a chest x-ray. She is not able to bring up sputum at this times will go ahead and switch over to Levaquin to treat her for enteric organisms. I did review the x-ray already. She does have some irregular changes to the bases right more than left. I did call the patient. If she has any worsening symptoms or she has no better after the Levaquin she will call the office in order to order a CT scan. I am concerned specially with her significant weight loss for the possibility of an occult malignancy. 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 Pulmonary emboli Chronic respiratory failure COPD (chronic obstructive pulmonary disease) Hypogammaglobulinemia Social History (Updated 04/08/21 @ 09:21 by BRANDI Alvarez) Patient Tobacco Use Status: Former Tobacco user Tobacco use type: Cigarette Years Smoked: 20 years Review of Systems Const Reports frequent falls, Denies night sweats, Reports weakness and Reports weight loss ENT Denies change in voice, Denies lip swelling, Denies mouth pain, Reports nasal congestion, Reports nasal discharge and Denies tongue swelling Card Denies chest pain, Reports dyspnea and Reports dyspnea on exertion Resp Reports change in phlegm color, Reports chest congestion, Reports cough, Reports dyspnea and Reports dyspnea on exertion GI Denies abdominal pain Musc Reports abnormal gait and Reports muscle weakness Neuro Denies Neuro-related abnormal movements, Reports abnormal gait, Reports frequent falls and Reports weakness Psych Denies no additional complaints Andrew/Lymph Denies easy bleeding and Denies lymphadenopathy Aller/Immun Denies lip swelling and Denies tongue swelling Physical Exam Vital Signs: Last Vital Signs Pulse 78 02/13/23 11:01 Pulse Ox 92 02/13/23 11:01 Oxygen Delivery Method Room Air 02/13/23 11:01 BMI result Body Mass Index 17.6 Const General: comfortable and alert Nutritional Appearance: underweight Orientation/consciousness: patient oriented x3 Limitations: wheelchair HEENT Head: Yes normocephalic Neck Neck: Yes normal visual inspection, Yes full ROM and Yes no lymphadenopathy Chest Chest palpation & inspection: normal inspection of the chest Resp Auscultation: no rales, no rhonchi, no wheezes and diminished lung sounds Cardio Rate: regular rate Rhythm: regular rhythm Heart sounds: S1 normal heart sound present and S2 normal heart sound present GI Palpation (GI): Soft to palpation and nontender Auscultation: normal bowel sounds Skin General skin exam: rashes and/or lesions noted Neuro General: patient oriented x3 Extrem General: Yes no clubbing, cyanosis or edema Assessment & Plan Assessment & Plan (1) Hypogammaglobulinemia: Code(s): D80.1 - Nonfamilial hypogammaglobulinemia (2) COPD (chronic obstructive pulmonary disease): Code(s): J44.9 - Chronic obstructive pulmonary disease, unspecified Qualifiers: COPD type: chronic bronchitis Chronic bronchitis type: mixed simple and mucopurulent Qualified Code(s): J41.8 - Mixed simple and mucopurulent chronic bronchitis (3) Chronic respiratory failure: Code(s): J96.10 - Chronic respiratory failure, unspecified whether with hypoxia or hypercapnia Qualifiers: Respiratory failure complication: hypoxia Qualified Code(s): J96.11 - Chronic respiratory failure with hypoxia (4) Physical deconditioning: Code(s): R53.81 - Other malaise Plan continue IgG infusions every 6 weeks continue Trelegy ISRA as needed Nebulizer therapy CPT with the acapella valve CXR, CT chest if abnormal or no better clinically labs Start Levaquin x 10 days Follow-up in 2 months Orders: Orders Complete Blood Count Auto Diff Today J18.9 - Pneumonia, unspecified organism Basic Metabolic Panel Today J18.9 - Pneumonia, unspecified organism Immunoglobulin G Subclasses Today J18.9 - Pneumonia, unspecified organism Erythrocyte Sedimentation Rate Today J18.9 - Pneumonia, unspecified organism XR chest 2V Today J41.8 - Mixed simple and mucopurulent chronic bronchitis Medications: New levofloxacin 500 mg PO DAILY 10 days 10 tabs 0RF Telehealth Telehealth Patient verbally consented to billing insurance company: Yes Coding Level of Care Code Est Pt Level 4 (39492) Diagnoses Hypogammaglobulinemia D80.1 Mixed simple and mucopurulent chronic bronchitis J41.8 COPD type: chronic bronchitis Chronic bronchitis type: mixed simple and mucopurulent Chronic respiratory failure with hypoxia J96.11 Respiratory failure complication: hypoxia Physical deconditioning R53.81 Time Spent (min) 18
[2023-02-13 11:01] VITALS: PULSE 78; O2SAT 92; BMI 17.6
== END 2023-02-13 11:26 | disposition home or self-care (01) ==
PROVIDERS: PCP Internal Medicine; Visit Provider Hospitalist
DX: D80.1 Nonfamilial hypogammaglobulinemia (principal); J41.8 Mixed simple and mucopurulent chronic bronchitis; J96.11 Chronic respiratory failure with hypoxia; R53.81 Other malaise
CPT/HCPCS: 99214

== ENCOUNTER 2023-02-13 10:53 | Outpatient (REF) | payer MEDICARE, SELFPAY ==
[2023-02-13 11:40] LABS: MANUAL DIFF FLAG NO
[2023-02-13 11:53] LABS: Basophils Absolute Auto 0.1 X10*3/uL (0.0-0.2); Eosinophils Percent Auto 0.2 % (0-4); Hematocrit 32.5 % (37.0-47.0); Hemoglobin 10.2 g/dl (12.0-16.0); Imm Gran Abs Auto 0.03 X10*3/uL (0.00-0.03); Imm Gran Pct Auto 0.3 % (0.0-0.4); Lymphocytes Absolute Auto 0.7 X10*3/uL (1.2-4.9); Lymphocytes Percent Auto 7.3 % (20-40); Mean Corpuscular HGB Conc 31.4 g/dl (31.0-35.0); Mean Corpuscular Hemoglobin 27.6 pg (27.0-33.0); Mean Corpuscular Volume 87.8 fL (80.0-98.0); Mean Platelet Volume 9.6 fL (9.4-12.3); Monocytes Absolute Auto 0.3 X10*3/uL (0.1-1.2); Monocytes Percent Auto 3.5 % (2-11); Neutrophils Absolute Auto 7.8 x10*3/uL (2.0-8.3); Neutrophils Percent Auto 87.7 % (45-73); Platelet Count 156 X10*3/uL (160-400); Red Cell Distribution Width 15.3 % (11.0-16.0); White Blood Count 8.9 X10*3/uL (4.8-10.8)
[2023-02-13 12:28] LABS: Erythrocyte Sedimentation Rate 28 MM/HR (0-20)
[2023-02-13 12:30] LABS: Anion Gap 11 (12-20); Blood Urea Nitrogen 14 mg/dL (9-16); Calcium 9.1 mg/dL (8.4-10.2); Carbon Dioxide 34 mmol/L (22-29); Chloride 96 mmol/L (96-108); Estimated Glomerular Filt Rate > 60; Glucose Random 154 mg/dL (60-115); Potassium 3.3 mmol/L (3.3-5.1); Sodium 138 mmol/L (135-145)
[2023-02-14 14:48] LABS: Immunoglobulin G Subclass 1 922 mg/dL (382-929); Immunoglobulin G Subclass 2 511 mg/dL (241-700); Immunoglobulin G Subclass 3 70 mg/dL (22-178); Immunoglobulin G Total 1526 mg/dL (600-1540)
== END 2023-02-13 10:54 | disposition home or self-care (01) ==
LOC: HO.XRAY 10:53
PROVIDERS: PCP Internal Medicine; Visit Provider Hospitalist
DX: D80.1 Nonfamilial hypogammaglobulinemia (principal); J96.11 Chronic respiratory failure with hypoxia; J44.9 Chronic obstructive pulmonary disease, unspecified; J18.9 Pneumonia, unspecified organism; R53.81 Other malaise
CPT/HCPCS: 36415; 71046; 80048; 82784; 85025; 85652; 99212

== ENCOUNTER 2023-03-30 09:40 | Outpatient (REF) | payer MEDICARE, SELFPAY | END 2023-03-30 09:41 | disposition home or self-care (01) | LOC: HO.MDS 09:40 | PROVIDERS: Visit Provider Hospitalist | DX: D80.1 Nonfamilial hypogammaglobulinemia (principal) | CPT/HCPCS: 96365; 96366; J1569 ==

== ENCOUNTER 2023-04-10 11:06 | Outpatient (AMB) | payer MEDICARE, SELFPAY ==
--- NOTE | 2023-04-10 11:22 | MHC.OFFVIS ---
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 Allergies bee venom protein (honey bee) [BEE VENOM PROTEIN (HONEY BEE)] Allergy (Severe, Verified 04/10/23 11:24) swelling rash Penicillins [PENICILLINS] Allergy (Severe, Verified 04/10/23 11:24) rash sulfamethoxazole [From BACTRIM] Allergy (Severe, Verified 04/10/23 11:24) rash trimethoprim [From BACTRIM] Allergy (Severe, Verified 04/10/23 11:24) rash risedronate sodium Allergy (Intermediate, Verified 04/10/23 11:24) Rash hydroxychloroquine Allergy (Mild, Verified 04/10/23 11:24) Rash HPI HPI Comments History of Present Illness Details The patient is an 87 y/o woman with a history of COPD in addition to chronic respiratory failure on oxygen related to the COPD in addition to hypogammaglobulinemia IgG infusions every month. The IgG infusions with very effective beneficial to her. She has been able to stay healthy and recovering from her ongoing respiratory infections that she had before. She also uses azithromycin Sunday and Sunday with decrease exacerbations of her COPD and bronchitis. She however has complaints of weight loss of approximately 50 lb in also feeling very cold. Platelet she does have a coughing episodes with productive sputum with yellowish sputum. Denies any blood or any point. She denies any night sweats she denies any chills or fevers. Overall she is doing well. She did not have her bloodwork. She is concerned about the next IgG infusion. She has been weak with lower extremity muscle loss and weight loss. We did do a chest x-ray that was relatively stable. No evidence of any malignancy. The x-rays for the weight loss is still not clear. She does feel very cold. And has had issues with thyroid. She will be following up with her primary care doctor soon. If it's still not clear about her weight loss then a a CT scan of the chest may be warranted to address questions of malignancy. 05/16/2022 the patient is here for a hospital follow-up visit. She was recently hospitalized with pneumonia and COPD exacerbation. The patient had a CT scan of the chest that we personally reviewed the report demonstrating bibasilar airspace disease. She has been treated with multiple courses of steroids therefore suppressing her immune system and she was also given multiple courses of antibiotics. Her sputum culture was only positive for Aspergillus fumigatus. The patient is also post COVID back in the end of January. It is understood that the increase of fungal infections is higher after a COVID infection. 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 Therefore is not unreasonable to treat her for the fungal infection specially with worsening overall status her significant weight loss. The other option is to consider bronchoscopy but she appears to be frail and I am concerned about any aggressive interventions. The patient also may be having allergic reaction to the Aspergillus will go ahead and request Aspergillus precipitants in addition to allergy levels. 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 06/15/2022 the patient is here for a pulmonary follow-up visit. She is currently on voriconazole. She stop the azithromycin. She seems to be doing well. Her chest congestion is improved. She is tolerating the antifungal therapy. Her blood work was reassuring with normal renal functions and CBC. The patient does have an IgG level that is low normal. She is responding well to the IVIG infusions every 6 weeks. It was reported that she has been having hard time getting her IVIG due to axis. Question about a Port-A-Cath. At this point will hold off on any invasive procedures for specially with her frail state. She is trying to gain weight. She is going to start taking additional protein in her diet. She also drinks post. She does continue to use the oxygen with good effect and she continues with respiratory therapy. At this point she is doing okay although she is frail. 08/16/2022 The patient is here for a pulmonary follow up visit. She comepleted the voriconazole. She is feeling better. Still complains of the weakeness and shortness of breath, moderate in severity. Still, has chest congestion, but clear mucus. But overall, doing better. Continue with IVIg every 6 weeks. We reviewed her last CT chest 04/2022 with bibasilar PNA and pleural effusions. Will undergo a repeat CXR. 11/07/2022 the patient is here for pulmonary follow-up visit. She is doing better for respiratory status. She completed her antibiotics and also completed her prednisone. She is also down with all the antifungal therapy. Her last chest x-ray we did review demonstrating the 1st residual pleural effusions and bibasilar congestion and congestive heart failure. Although she is doing better at this point from that standpoint. She continues with respiratory therapy. She continues with her IVIG every 6 weeks. Will continue this for now. We will reassess her IgG levels in the springtime decide if we can go further into every 8 weeks. The patient unfortunately had a bad fall. She is currently being evaluated by primary care doctor and is scheduled to have an MRI of her lumbar hip area. She is having significant pain. I did give her some recommendations. In the meantime she may benefit from VNA services I did ask her to reach out to her primary care doctor as she is she is pretty homebound and she is very unsteady on her feet. Has been has been very concerned about her risk for falls and he has a hard time helping her as well. 02/13/2023 the patient is here for a pulmonary follow-up visit. She has been complaining of worsening cough productive in nature with brownish phlegm. This is different from before. She also complains of increasing shortness of breath with minimal activity. She is also has had significant weight loss. She continues on the IVIG. Will recheck her levels. In addition to that the patient will have blood work done to make sure she does not have any other reasons for the worsening dyspnea on exertion. In addition to further address the weight loss. Will have her get a chest x-ray. She is not able to bring up sputum at this times will go ahead and switch over to Levaquin to treat her for enteric organisms. I did review the x-ray already. She does have some irregular changes to the bases right more than left. I did call the patient. If she has any worsening symptoms or she has no better after the Levaquin she will call the office in order to order a CT scan. I am concerned specially with her significant weight loss for the possibility of an occult malignancy. 04/10/2023 the patient is here for hospital follow-up visit. She was recently hospitalized at [facility]. While she was there she was admitted given additional oxygen and also had additional imaging studies. She was told that she had a fungal infection in her lungs. She was then referred back to Pulmonary to treated. The patient has not received any treatment as of yet. She did have increased steroids while she was in a hospital and taper when she went home. She is back to her baseline medications. She does complaint of a cough congested in nature moderate severity. She also continues to feel weak. We did review the blood work she had back in January 2023 demonstrating her IVIG is effective in beneficial and her levels are within normal limits. The patient did sign a release of medical records in order for us to get the records from [facility] in address the fungal infection. She does have a sputum culture back from January 2023 which demonstrated is Aspergillus fumigatus identified. Does not clear they had additional sputum cultures from her recent admission to the hospital. Not unreasonable to treat her again with voriconazole since she responded well in the past. In addition to that will switch her azithromycin to doxycycline to try to clear any some susceptible community-acquired organisms such as staph. In the meantime will help her with her chest PT by providing her hypertonic saline that she can use after her albuterol and followed by the Acapella valve for more aggressive mucus clearance. She will also continue with current dose of IVIG for her immunodeficiency. 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 Pulmonary emboli Chronic respiratory failure COPD (chronic obstructive pulmonary disease) Hypogammaglobulinemia Social History (Updated 04/08/21 @ 09:21 by BRANDI Alvarez) Patient Tobacco Use Status: Former Tobacco user Tobacco use type: Cigarette Years Smoked: 20 years Review of Systems Const Reports frequent falls, Denies night sweats, Reports weakness and Reports weight loss ENT Denies change in voice, Denies lip swelling, Denies mouth pain, Reports nasal congestion, Reports nasal discharge and Denies tongue swelling Card Denies chest pain, Reports dyspnea and Reports dyspnea on exertion Resp Reports change in phlegm color, Reports chest congestion, Reports cough, Reports excessive phlegm production, Reports dyspnea and Reports dyspnea on exertion GI Denies abdominal pain Musc Reports abnormal gait and Reports muscle weakness Neuro Denies Neuro-related abnormal movements, Reports abnormal gait, Reports frequent falls and Reports weakness Psych Denies no additional complaints Andrew/Lymph Denies easy bleeding and Denies lymphadenopathy Aller/Immun Denies lip swelling and Denies tongue swelling Physical Exam Vital Signs: Last Vital Signs Pulse 67 04/10/23 11:23 Pulse Ox 91 L 04/10/23 11:23 Oxygen Delivery Method Room Air 04/10/23 11:23 BMI result Body Mass Index 17.4 Const General: comfortable and alert Nutritional Appearance: underweight Orientation/consciousness: patient oriented x3 Limitations: wheelchair HEENT Head: Yes normocephalic Neck Neck: Yes normal visual inspection, Yes full ROM and Yes no lymphadenopathy Chest Chest palpation & inspection: normal inspection of the chest Resp Effort & Inspection: Actively coughing (weak) Quality: productive Auscultation: no rales, no rhonchi, no wheezes and diminished lung sounds Cardio Rate: regular rate Rhythm: regular rhythm Heart sounds: S1 normal heart sound present and S2 normal heart sound present GI Palpation (GI): Soft to palpation and nontender Auscultation: normal bowel sounds Skin General skin exam: rashes and/or lesions noted Neuro General: patient oriented x3 Extrem General: Yes no clubbing, cyanosis or edema Assessment & Plan Assessment & Plan (1) Hypogammaglobulinemia: Code(s): D80.1 - Nonfamilial hypogammaglobulinemia (2) COPD (chronic obstructive pulmonary disease): Code(s): J44.9 - Chronic obstructive pulmonary disease, unspecified Qualifiers: COPD type: chronic bronchitis Chronic bronchitis type: mixed simple and mucopurulent Qualified Code(s): J41.8 - Mixed simple and mucopurulent chronic bronchitis (3) Chronic respiratory failure: Code(s): J96.10 - Chronic respiratory failure, unspecified whether with hypoxia or hypercapnia Qualifiers: Respiratory failure complication: hypoxia Qualified Code(s): J96.11 - Chronic respiratory failure with hypoxia (4) Physical deconditioning: Code(s): R53.81 - Other malaise (5) 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 - Other pulmonary aspergillosis Plan continue IgG infusions every 6 weeks continue Trelegy ISRA as needed Nebulizer therapy CPT with the acapella valve Add hypertonic saline nebs start voriconazole while we wait for the records from [place] stop azithromycin start Doxycycline Follow-up in 3-4 weeks Medications: New sodium chloride 3% 4 mL inhalation BID 30 days 240 mL 11RF doxycycline monohydrate 100 mg PO BID 30 days 60 tabs 0RF voriconazole administer on empty stomach, at least 1 hour before or after meal(s) 200 mg PO Q12H 30 days 60 tabs 1RF Coding Level of Care Code Est Pt Level 5 (89808) Diagnoses Hypogammaglobulinemia D80.1 Mixed simple and mucopurulent chronic bronchitis J41.8 COPD type: chronic bronchitis Chronic bronchitis type: mixed simple and mucopurulent Chronic respiratory failure with hypoxia J96.11 Respiratory failure complication: hypoxia Physical deconditioning R53.81 Pulmonary aspergilloma B44.1 Time Spent (min) 30
[2023-04-10 11:23] VITALS: PULSE 67; O2SAT 91; BMI 17.4
== END 2023-04-10 11:48 | disposition home or self-care (01) ==
PROVIDERS: PCP Internal Medicine; Visit Provider Hospitalist
DX: D80.1 Nonfamilial hypogammaglobulinemia (principal); J41.8 Mixed simple and mucopurulent chronic bronchitis; J96.11 Chronic respiratory failure with hypoxia; R53.81 Other malaise; B44.1 Other pulmonary aspergillosis
CPT/HCPCS: 99214

== ENCOUNTER → 2023-04-10 11:06 | Outpatient (BNVA) | payer MEDICARE, SELFPAY | PROVIDERS: PCP Internal Medicine; Visit Provider Hospitalist | DX: D80.1 Nonfamilial hypogammaglobulinemia (principal); J41.8 Mixed simple and mucopurulent chronic bronchitis; J96.11 Chronic respiratory failure with hypoxia; R53.81 Other malaise; B44.1 Other pulmonary aspergillosis | CPT/HCPCS: 99212 ==